=== PATIENT | male | born 1995 | race Asian ===

== ENCOUNTER 2020-02-06 11:48 | Outpatient (CLI) | payer OTHER, SELFPAY ==
--- NOTE | 2020-02-09 11:44 | WPDHOLTEREM ---
Holter/Event Monitor Holter/Event Monitor Date of procedure: 02/06/20 Procedure Type: 48 hour holter monitor Conclusion: 1.48 hour holter monitor on 02/06/20. 2.Underlying rhythm is sinus rhythm. HR range 43-130 bpm; average HR 67 bpm. 3. There are 2 premature supraventricular complexes. No supraventricular tachycardia. 4. No premature ventricular complexes. No ventricular tachycardia. 5. No sinoatrial or atrioventricular blocks. No significant pauses greater than 2 seconds. 6. No symptoms available for correlation.
== END 2020-02-06 11:49 | disposition home or self-care (01) ==
DX: R42 Dizziness and giddiness (principal)
CPT/HCPCS: 93225; 93226